=== PATIENT | male | born 1985 | race Caucasian/White ===

== ENCOUNTER 2023-09-28 12:04 | Emergency (ER) | payer MEDICAID, OTHER ==
[2023-09-28] MEDS: Dexamethasone 4 MG/ML SDV IM ONE (12:49)
== END 2023-09-28 12:58 | disposition home or self-care (01) ==
LOC: DL.ED 12:04
DX: S39.92XA Unspecified injury of lower back, initial encounter (principal); X58.XXXA Exposure to other specified factors, initial encounter; Y93.89 Activity, other specified
CPT/HCPCS: 96372; 99283; J1100